=== PATIENT | male | born 1945 | race Caucasian/White ===

== ENCOUNTER 2023-10-24 11:53 | Day surgery (SDC) | payer MEDICARE ==
[2023-10-23 09:39] VITALS: BMI 24.0
[~2023-10-24 11:53] MED LIST: LACTATED RINGERS 1,000 ML IV SCH; MOXIFLOXACIN HCL 0.5% DROPS 3 ML BTL OP PRN; TETRACAINE 0.5% OPHTH (PF) DROPS 4 ML BTL OP PRN; TIMOLOL 0.5% OPHTH DROPS 5 ML BTL OP PRN
[2023-10-24] MEDS: CYCLOPENTOLATE 1% OPHTH SOLN 2 ML BTL OP PRN ×3 (12:20→12:32)
[2023-10-24] MEDS: PHENYLEPHRINE 2.5% OPHTH DRP 2ML OP PRN ×3 (12:23→12:35)
[2023-10-24 12:38] VITALS: TEMP 97.2
[2023-10-24] MEDS ORDERED: fentaNYL (PF) 50 MCG/ML 2 ML AMP ONE (14:05)
[2023-10-24] MEDS ORDERED: HYALURONATE SODIUM INTRAOCULAR 1 EACH SYRINGE (12MG/ML) INTRAOCULA ONE (14:05)
[2023-10-24] MEDS ORDERED: MIDAZOLAM 2 MG/2 ML VIAL ONE (14:05)
[2023-10-24] MEDS ORDERED: BALANCED SALT IRRIG SOLN COMB2 15 ML IRRIG.SOLN INTRAOCULA ONE ×2 (14:06→14:20)
[2023-10-24] MEDS ORDERED: LIDOCAINE 1% (PF) 10MG/ML VIAL MISCELLANE ONE (14:06)
[2023-10-24] MEDS ORDERED: LIDOCAINE 1% PF 10 MG/ML (5 ML AMP) MISCELLANE ONE (14:20)
[2023-10-24] MEDS ORDERED: EPINEPHrine (PF) 0.3 ML in BALANCED SALT IRRIG SOLN COMB2 500 ML IRRIGATION ONE (14:21)
[2023-10-24] MEDS ORDERED: DUOVISC KIT (GREEN BOX) INTRAOCULA ONE (14:22)
--- NOTE | 2023-10-24 14:43 | P.OP ---
Date of Procedure: 10/24/23 Preoperative Diagnosis: NS & CS & PXS Postoperative Diagnosis: same Procedure(s) Performed: PIOL & goniotomy OD Implants: CTR 13mm & MX60E 21.50 Anesthesia: MAC Surgeon: Rick Cantu Pathology: none sent Condition: stable Disposition: same day Indications for Procedure: blurry vision and glaucoma control Operative Findings: no complications
[2023-10-24 15:05] VITALS: BP 114/71; PULSE 39; RESP 16
--- NOTE | 2023-10-25 00:38 | OP ---
OPERATIVE REPORT DATE OF SERVICE : 10/24/2023 PROCEDURE PERFORMED: Phacoemulsification of cataract and intraocular lens implant of the right eye with goniotomy of the right eye. PREOPERATIVE DIAGNOSES: Nuclear sclerosis, cortical sclerosis, posterior subcapsular cataract, and primary open- angle glaucoma, moderate stage. ANESTHESIA: Topical. ESTIMATED BLOOD LOSS: Less than 5 mL. SPECIMEN TAKEN: None. NARRATIVE: After obtaining the appropriate consent, the patient was brought to the operating room. There he was placed under cardiac monitoring, prepped and draped in the usual sterile manner. He was approached from his right temporal side and at the 11 o'clock position, an MVR blade was used to create a paracentesis port. Through this opening, 1% Xylocaine MPF 50:50 mix with balanced salt solution was injected into the anterior chamber. This was followed by stabilization of the anterior chamber with Viscoat. At the 9 o'clock position, a 2.5-mm keratome was used to create a self-sealing corneal flap incision. At this stage of the procedure, the patient was asked to rotate his head approximately 45 degrees to his left and maintain a gaze in the general direction. A gonioscopy prism was placed on the patient's eye and the trabecular meshwork was easily identified. A [employer] goniotomy knife was advanced across the anterior chamber. Using a ese and meet method, the nasal trabecular meshwork was removed for approximately 4- 1/2 clock hours. Bleeding was as expected in the anterior chamber angle. He was then returned to the normal supine position. A cystotome was introduced to begin a continuous tear capsulorrhexis which was then completed using the Utrata forceps. Hydrodissection and hydrodelineation of the lens were accomplished with balanced salt solution. Phacoemulsification lens utilizing phaco chop was accomplished in 23.71 seconds at 13% power. Additional Xylocaine MPF was instilled into the anterior chamber. This was followed by removal of the remaining cortical material under irrigation and aspiration as well as careful polishing of the capsule in the capsule vacuum mode. The capsular bag was then deepened with Provisc, and a capsular tension ring of 13 mm was placed into the equator of the bag without difficulty. This was followed by placement of a [employer]ch [employer] MX 60E 21.5 diopter posterior chamber intraocular lens into the capsular bag without difficulty. The remaining viscoelastic was removed from in and around the intraocular lens as well as the anterior chamber. The eye was then brought to normal intraocular pressure through the paracentesis port. All wounds were confirmed watertight. He then received 2 drops of 0.5% timolol as well as 2 drops of moxifloxacin. He was then lightly patched and shielded in the usual manner with his head elevated approximately 45 degrees. There were no complications from the procedure. He tolerated the procedure well and was returned to outpatient recovery in good condition. RICHI / PER: [id number] /
== END 2023-10-24 15:24 | disposition home or self-care (01) ==
LOC: OR 11:53
PROVIDERS: ATTEND Ophthalmology
DX: H25.11 Age-related nuclear cataract, right eye (principal); H47.093 Other disorders of optic nerve, not elsewhere classified, bilateral
CPT/HCPCS: 66984; 65820; C1780; J2250; J0171; J2001; J3010

== ENCOUNTER 2023-11-26 08:41 | Day surgery (SDC) | payer MEDICARE ==
[2023-11-21 11:19] VITALS: BMI 23.7
[2023-11-26] MEDS: CYCLOPENTOLATE 1% OPHTH SOLN 2 ML BTL OP PRN ×2 (09:34→09:46)
[2023-11-26] MEDS: PHENYLEPHRINE 2.5% OPHTH DRP 2ML OP PRN ×3 (09:37→09:49)
[2023-11-26] MEDS ORDERED: CYCLOPENTOLATE 1% OPHTH SOLN 2 ML BTL OP ONE (09:40)
[2023-11-26 09:55] VITALS: RESP 16; TEMP 97.3
[2023-11-26] MEDS ORDERED: GLYCOPYRROLATE 0.2 MG/ML 2 ML VIAL ONE (10:40)
[2023-11-26] MEDS ORDERED: fentaNYL (PF) 50 MCG/ML 2 ML AMP ONE (10:40)
[2023-11-26] MEDS ORDERED: MIDAZOLAM 2 MG/2 ML VIAL ONE (10:40)
[2023-11-26] MEDS ORDERED: LIDOCAINE 1% (PF) 10MG/ML VIAL MISCELLANE ONE (10:51)
[2023-11-26] MEDS ORDERED: DUOVISC KIT (GREEN BOX) INTRAOCULA ONE (10:51)
[2023-11-26] MEDS ORDERED: BALANCED SALT IRRIG SOLN COMB2 15 ML IRRIG.SOLN INTRAOCULA ONE (10:51)
[2023-11-26] MEDS ORDERED: TRYPAN BLUE 0.06% SYRINGE 0.5 ML SYRINGE INTRAOCULA ONE (10:59)
--- NOTE | 2023-11-26 11:24 | P.OP ---
Date of Procedure: 11/26/23 Preoperative Diagnosis: NS & PXS & 2 glaucoma Postoperative Diagnosis: same Procedure(s) Performed: PIOL, OS & goniotomy OS Implants: MX60E 21.50 Anesthesia: MAC Surgeon: Rick Cantu Pathology: none sent Condition: stable Disposition: same day Indications for Procedure: blurry vision and glaucoma control problems Operative Findings: no complications
[2023-11-26 12:01] VITALS: BP 130/82; PULSE 54
--- NOTE | 2023-11-26 19:54 | OP ---
OPERATIVE REPORT DATE OF SERVICE : 11/26/2023 PROCEDURES PERFORMED: Phacoemulsification of cataract and intraocular lens implant of the left eye with goniotomy of the left eye and capsular tension ring placement of left eye. PREOPERATIVE DIAGNOSES: Nuclear sclerosis, pseudoexfoliation, and pseudoexfoliative glaucoma of the left eye. POSTOPERATIVE DIAGNOSES: Nuclear sclerosis, pseudoexfoliation, and pseudoexfoliative glaucoma of the left eye. ANESTHESIA: Topical. ESTIMATED BLOOD LOSS: Less than 5 mL. SPECIMEN TAKEN: None. NARRATIVE: After obtaining the appropriate consent, the patient was brought to the operating room. There, he was placed under cardiac monitoring, prepped and draped in the usual sterile manner. He was approached from his left temporal side, and at the 5 o'clock position, an MVR blade was used to create a paracentesis port. Through this opening, 1% Xylocaine MPF 50:50 mix with balanced salt solution was injected into the anterior chamber. This was followed by Trypan blue, which was allowed to stay in the eye for about 2 minutes. This was irrigated away with balanced salt solution and the anterior chamber was then stabilized with Viscoat. At the 3 o'clock position, a 2.5 mm keratome was then used to create a self-sealing corneal flap incision. A small amount of Viscoat was placed on the patient's cornea, gonioprism was placed on top of the viscoelastic, and the patient was rotated approximately 45 degrees to his right to expose the trabecular meshwork. A [employer] dual blade goniotomy knife was passed across the anterior chamber of the eye, and using a ese and meet method, approximately 5 hours of trabecular meshwork were removed without any difficulty. The patient was then returned to the normal supine position and a cystotome was introduced to begin a continuous tear capsulorrhexis, which was then completed using the Utrata forceps. Hydrodissection and hydrodelineation of the lens were accomplished with balanced salt solution. Phacoemulsification of the lens utilizing phaco chop was accomplished in 24.03 seconds at 17% power. Additional Xylocaine MPF was instilled into the anterior chamber. This was followed by removal of the remaining cortical material under irrigation and aspiration as well as careful polishing of the posterior capsule in the capsule vacuum mode. A 13 mm capsular tension ring, model [id number] was placed into the equator of the capsular bag and delivered without any difficulties. This was followed by placement of a [employer]ch [employer] Lomb MX60E 21.5 diopter posterior chamber intraocular lens in the capsular bag. All remaining viscoelastic was then removed from in and around the intraocular lens and the anterior chamber. The eye was then brought to normal intraocular pressure through the paracentesis port with balanced salt solution. He then received 2 drops of 0.5% timolol, followed by 2 drops of moxifloxacin. He was then lightly patched and shielded in the usual manner. There were no complications from the procedure. He tolerated the procedure well and was returned to outpatient recovery in good condition. MMODL / IJN: [id number] /
== END 2023-11-26 12:05 | disposition home or self-care (01) ==
LOC: OR 08:41
PROVIDERS: ATTEND Ophthalmology
DX: H25.12 Age-related nuclear cataract, left eye (principal); H40.89 Other specified glaucoma; F12.90 Cannabis use, unspecified, uncomplicated; F17.200 Nicotine dependence, unspecified, uncomplicated
CPT/HCPCS: 65820; 66984; C1780; J2250; J3010; J2001

== ENCOUNTER → 2024-02-12 | Outpatient (CLI) | payer MEDICARE ==
[2024-02-12 12:30] LABS: Glucose 2 Hour 155 mg/dL
== END | disposition home or self-care (01) ==
LOC: LABWHC1 08:08
PROVIDERS: ATTEND Family Medicine
DX: E16.1 Other hypoglycemia (principal)
CPT/HCPCS: 36415; 82947; 82950